=== PATIENT | female | born 1990 | race Caucasian/White ===

== ENCOUNTER 2017-03-06 14:09 | Observation (INO) ==
[2017-03-06] MEDS ORDERED: Ketorolac 30 MG/ML VIAL IVP ONE (14:29)
[2017-03-06] MEDS ORDERED: Ondansetron 4 MG/2 ML VIAL IVP ONE (14:29)
[2017-03-06] MEDS ORDERED: *HR* HYDROmorphone (PF) 1 MG/ML SYRINGE IVP ONE ×3 (14:29→17:12)
--- NOTE | 2017-03-06 14:31 | Emergency Department Note ---
Disposition Clinical Impression: Calculus of kidney Disposition: Admitted As Inpatient Referrals: Moody Dias DO [Primary Care Provider] - Forms: Work/School Release, ED Satisfaction Letter Abdominal Pain HPI - General Chief Complaint: ED Abdominal Pain Stated Complaint: "I'm passing a kidney stone" Time Seen by Provider: 03/06/17 14:15 Source: patient Mode of arrival: ambulatory Limitations: no limitations Nursing Notes Reviewed: Yes Vital Signs Reviewed: Yes - History of Present Illness Pt Subjective Complaint: flank pain Onset (ago): week(s) (1) Consistency: intermittent Location: R flank Pain Scale: 10 Quality: stabbing, sharp Radiation: RLQ Improves with: nothing Worsens with: nothing Associated symptoms: Reports: nausea Treatments prior to arrival: NSAIDs, prescription analgesics - Related Data Home Medications Medication Instructions Recorded Confirmed Etonogestrel [Implanon] 68 mg ONCE 12/11/15 12/13/15 Previous Rx's Medication Instructions Recorded HYDROcodone/Acet 5/325 mg [[place] 2 tab PO Q4H PRN #20 tablet 12/13/15 5-325 mg] Oxybutynin [Ditropan] 5 mg PO TID PRN #30 tablet 12/13/15 Nitrofurantoin (BID) [Macrobid] 100 mg PO BID 7 Days 07/21/16 Ibuprofen [Motrin] 800 mg PO Q8HR PRN #30 tablet 12/12/16 Phenazopyridine HCl [Pyridium] 200 mg PO TID #6 tab 12/12/16 Sulfamethoxazole/Trimeth DS 1 each PO BID #14 tablet 12/12/16 [Bactrim DS] Dicyclomine [Bentyl] 10 mg PO QID #30 capsule 02/27/17 HYDROcodone/Acet 5/325 mg [[place] 1 tab PO Q4H PRN #15 tab 02/27/17 5-325 mg] Phenazopyridine HCl [Pyridium] 200 mg PO TIDAC #10 tab 02/27/17 Allergies Allergy/AdvReac Type Severity Reaction Status Date / Time No Known Allergies Allergy Verified 07/24/15 08:38 All systems ED: reviewed and negative except as stated. Constitutional: Denies: fever, chills, weakness Gastrointestinal: Reports: nausea Genitourinary: Reports: hematuria Abdominal Pain PMH - Past Medical History Medical history: Reports: kidney stones Female Surgical History: Reports: Tonsillectomy, other Psychiatric history: Reports: anxiety, depression - Social History Smoking status: Current every day smoker Alcohol use: Reports: occasionally Drug use: Reports: none Physical Exam - General Limitations: no limitations General appearance: in distress (SEVERE PAIN) - Head Head exam: atraumatic, normocephalic, normal inspection - Eye Eye exam: Present: normal appearance, PERRL, EOMI - Expanded Eye Exam Pupils: Left: reactive - ENT ENT exam: normal exam, normal oropharynx, mucous membranes moist - Expanded ENT Exam External ear exam: Present: normal external inspection Mouth exam: Present: normal external inspection Teeth exam: Present: normal inspection Throat exam: Present: normal inspection - Neck Neck exam: Present: normal inspection, full ROM, trachea midline - Chest Chest inspection: Present: normal inspection, symmetric chest wall rise - Respiratory Respiratory exam: Present: normal lung sounds bilaterally - Cardiovascular Cardiovascular exam: Present: regular rate, normal rhythm, normal heart sounds - Abdominal Exam Abdominal exam: Present: soft, Non-Tender. Absent: tenderness, distention, guarding, rebound, rigidity - Extremities Exam Extremities exam: Present: normal inspection, full ROM. Absent: tenderness, pedal edema - Expanded Upper Extremity Exam Shoulder exam: Present: normal inspection, full ROM Arm exam: Present: normal inspection, full ROM Elbow exam: Present: normal inspection, full ROM Forearm/Wrist exam: Present: normal inspection, full ROM Hand exam: Present: normal inspection, full ROM Vascular exam: Normal: capillary refill, radial pulse - Expanded Lower Extremity Exam Hip/Pelvis exam: Present: normal inspection, full ROM Upper leg exam: Present: normal inspection, full ROM Knee exam: Present: normal inspection, full ROM Lower leg exam: Present: normal inspection, full ROM Ankle exam: Present: normal inspection, full ROM Foot/toe exam: Present: normal inspection, full ROM Neurovascular/Tendon exam: Absent: motor deficit, sensory deficit, tendon deficit - Back Exam Back exam: Present: normal inspection, full ROM. Absent: tenderness - Neurological Exam Neurological exam: Present: alert, oriented X3 - Expanded Neurological Exam Patient oriented to: Present: person, place, time Coma Scale Eye Opening: Spontaneous Coma Scale Motor Response: Obeys Commands Coma Scale Verbal Response: Oriented Coma Scale Total: 15 - Psychiatric Psychiatric exam: Present: normal affect, normal mood - Skin Skin exam: Present: warm, dry, intact, normal color Course - Consultations Consultation #1: DR. DOSHI Time: 16:51 Vital Signs Temperature 97.9 F 03/06/17 14:13 Pulse Rate 92 03/06/17 14:13 Respiratory Rate 18 03/06/17 14:13 Blood Pressure 155/104 03/06/17 14:13 O2 Sat by Pulse Oximetry 97 03/06/17 14:13 Temperature 97.9 F 03/06/17 14:13 Pulse Rate 76 03/06/17 15:35 Respiratory Rate 18 03/06/17 15:35 Blood Pressure 131/85 03/06/17 15:35 O2 Sat by Pulse Oximetry 98 03/06/17 15:35 Abdominal Pain - Differential Diagnosis Differential Diagnosis: Likely: abdominal pain mimics ectopic , acute appendicitis, calculus of kidney, diverticulitis, gastroenteritis, , pancreatitis, small bowel obstruction - Medical Records Medical records reviewed: Yes I reviewed the patient's medical records. - Lab Data Lab results reviewed: Yes I reviewed the patient's lab results. Result diagrams: 03/06/17 15:58 Lab Results 03/06/17 03/06/17 03/06/17 Range/Units 14:20 14:20 15:58 Sodium 141 (136-145) mEq/L Potassium 4.2 (3.5-4.5) mEq/L Chloride 109 (98-109) mEq/L Carbon Dioxide 24 (19-29) mEq/L BUN 8 (7-20) mg/dL Creatinine 0.89 (0.57-1.11) mg/dL Est GFR ( Amer) > 60 (> 60) Est GFR (Non-Af Amer) > 60 (> 60) BUN/Creatinine Ratio 9 (6-26) Glucose 92 (70-99) mg/dL Calculated Osmolality 290 (280-300) Calcium 9.2 (8.6-10.8) mg/dL Urine Color Red A (Yellow) Urine Clarity Turbid A (Clear) Ur Specific [place] 1.021 (1.010-1.025) Urine Glucose (UA) TNP Urine Microscopic RBC 30-50 H (0-3) per hpf Urine Microscopic WBC 5-15 H (0-3) per hpf Ur Squamous Epith Cells Many H (None-Few) per lpf Urine Bacteria None Seen (None-Few) per hpf Hyaline Casts None Seen (None-Few) per lpf Urine Mucus Many H (Few) Ur Culture Indicated? YES A (NO) Urine Test Negative (Negative) - Radiology Data Radiology results reviewed: Yes I reviewed the patient's radiology results.
[2017-03-06 15:12] LABS: Clarity,Urine Turbid (Clear); Color,Urine Red (Yellow); Specific Gravity,Urine 1.021 (1.010-1.025)
[2017-03-06 15:15] LABS: Bacteria,Urine None Seen per hpf (None-Few); Hyaline Casts,Urine None Seen per lpf (None-Few); RBC,Urine 30-50 per hpf (0-3); Squamous Epithelial Cell,Urine Many per lpf (None-Few)
[2017-03-06 15:25] LABS: Mucus,Urine Many (Few)
[2017-03-06 16:25] LABS: BUN/Creatinine Ratio 9 (6-26); Blood Urea Nitrogen 8 mg/dL (7-20); Calcium 9.2 mg/dL (8.6-10.8); Carbon Dioxide 24 mEq/L (19-29); Chloride 109 mEq/L (98-109); Glucose 92 mg/dL (70-99); Osmolality,Calculated 290 (280-300); Potassium 4.2 mEq/L (3.5-4.5); Sodium 141 mEq/L (136-145); eGFR For African Americans > 60 (> 60); eGFR For Non-African Americans > 60 (> 60)
[2017-03-06] MEDS ORDERED: *HR* HYDROcodone/Acet 5/325 mg TABLET PO PRN (17:30)
[2017-03-06] MEDS ORDERED: *HR* Morphine 2 MG/ML SYRINGE IVP PRN (17:30)
[2017-03-06] MEDS ORDERED: Naloxone 0.4 MG/ML INJ IVP PRN (17:30)
--- NOTE | 2017-03-06 17:36 | Urology History & Physical ---
Date of Encounter: 03/06/17 Time of Encounter: 17:34 Assessment and Plan (1) Right ureteral stone Current Visit: Yes Status: Acute Patient we brought him for observation for IV pain control and IV fluids. If patient fails to pass the stone tonight she will be taken to the operating room tomorrow for right ureteroscopic stone extraction. History of Present Illness Chief complaint: right flank pain HPI: Ms. Calix is a 26 year old female with a history of right-sided flank pain for the past week. Patient has been to the emergency department twice secondary to this pain. She is found on CT scan 2 to have a right distal 3 mm UVJ stone. Patient denies any fevers. No current nausea or vomiting. Past Med Surg Social Fam HX - Past Medical History Medical history: kidney stones Psychiatric history: anxiety, depression - Social History Smoking Status: Current every day smoker Smokeless Tobacco Status: No Alcohol use: occasionally Drug use: none Medications and Allergies No Known Home Drugs 03/06/17 [History] Allergies No Known Allergies Allergy (Verified 07/24/15 08:38) Review of Systems - Constitutional no chills, no fatigue, no fever(s) - EENT Nose, mouth and throat: no dizziness - Cardiovascular no chest pain - Respiratory no cough Exam Initial Vital Signs Temp Pulse Resp BP Pulse Ox 97.9 F 92 18 155/104 97 03/06/17 14:13 03/06/17 14:13 03/06/17 14:13 03/06/17 14:13 03/06/17 14:13 - General physical appearance Present: well developed - Eyes Present: PERRL - ENT Present: normal nares - Neck Present: no masses - Abdomen Abdomen: Present: soft Urology Results - Labs 03/06/17 15:58 Abnormal lab results Urine Color Red (Yellow) A 03/06/17 14:20 Urine Clarity Turbid (Clear) A 03/06/17 14:20 Urine Microscopic RBC 30-50 per hpf (0-3) H 03/06/17 14:20 Urine Microscopic WBC 5-15 per hpf (0-3) H 03/06/17 14:20 Ur Squamous Epith Cells Many per lpf (None-Few) H 03/06/17 14:20 Urine Mucus Many (Few) H 03/06/17 14:20 Ur Culture Indicated? YES (NO) A 03/06/17 14:20 All other labs normal. - Imaging CT scan - abdomen: image reviewed CT scan - pelvis: image reviewed
[2017-03-06] MEDS: Ketorolac 30 MG/ML VIAL IVP SCH ×2 (20:22→23:39)
[2017-03-06] MEDS: 0.9 % Sodium Chloride 1,000 ML IVC SCH (20:26)
[2017-03-06] MEDS ORDERED: *HR* Promethazine 25 MG/ML VIAL IVP PRN (20:46)
[2017-03-07 04:02] LABS: Basophils # 0.1 K/mcL (0.0-0.2); Basophils % 0.6 %; Eosinophils # 0.3 K/mcL (0.0-0.6); Eosinophils % 2.8 %; Hemoglobin 12.5 g/dL (11.5-15.4); Immature Granulocytes % 0.4 % (0-4); Lymphocytes # 3.5 K/mcL (0.6-4.6); Lymphocytes % 33.3 %; Mean Corpuscular HGB Conc 32.1 g/dL (31.6-35.5); Mean Corpuscular Hemoglobin 28.8 pg (28.0-33.3); Mean Corpuscular Volume 89.9 fL (83.0-100.0); Mean Platelet Volume 10.6 fL (9.4-12.4); Monocytes % 9.1 %; Neutrophils # 5.7 K/mcL (1.6-8.9); Platelet Count 301 K/mcL (140-400); Red Blood Count 4.34 M/mcL (3.82-4.97); Segmented Neutrophils % 53.8 %
[2017-03-07 04:35] LABS: BUN/Creatinine Ratio 11 (6-26); Blood Urea Nitrogen 9 mg/dL (7-20); Calcium 8.3 mg/dL (8.6-10.8); Carbon Dioxide 23 mEq/L (19-29); Chloride 110 mEq/L (98-109); Glucose 85 mg/dL (70-99); Osmolality,Calculated 290 (280-300); Potassium 3.8 mEq/L (3.5-4.5); Sodium 141 mEq/L (136-145); eGFR For African Americans > 60 (> 60); eGFR For Non-African Americans > 60 (> 60)
[2017-03-07] MEDS: 0.9 % Sodium Chloride 1,000 ML IVC SCH (04:45)
[2017-03-07] MEDS: Ketorolac 30 MG/ML VIAL IVP SCH (05:33)
--- NOTE | 2017-03-07 06:49 | Urology Progress Note ---
Date of Encounter: 03/07/17 Time of Encounter: 06:48 - Assessment and Plan (1) Right ureteral stone Current Visit: Yes Status: Acute Assessment and plan: to OR today for stone extraction. Progress Note Narrative: HD 2 for right distal ureteral stone. patient with pain controlled, but does not believe she passed the stone. Objective Initial Vital Signs Temp Pulse Resp BP Pulse Ox 97.9 F 92 18 155/104 97 03/06/17 14:13 03/06/17 14:13 03/06/17 14:13 03/06/17 14:13 03/06/17 14:13 - General physical appearance Present: well developed - Abdomen Present: soft - Labs 03/07/17 03:30 03/07/17 03:30 Diabetes panel 03/07/17 Range/Units 03:30 Sodium 141 (136-145) mEq/L Potassium 3.8 (3.5-4.5) mEq/L Chloride 110 H (98-109) mEq/L Carbon Dioxide 23 (19-29) mEq/L BUN 9 (7-20) mg/dL Creatinine 0.85 (0.57-1.11) mg/dL Glucose 85 (70-99) mg/dL Calcium 8.3 L (8.6-10.8) mg/dL Calcium panel 03/07/17 Range/Units 03:30 Calcium 8.3 L (8.6-10.8) mg/dL Pituitary panel 03/07/17 Range/Units 03:30 Sodium 141 (136-145) mEq/L Potassium 3.8 (3.5-4.5) mEq/L Chloride 110 H (98-109) mEq/L Carbon Dioxide 23 (19-29) mEq/L BUN 9 (7-20) mg/dL Creatinine 0.85 (0.57-1.11) mg/dL Glucose 85 (70-99) mg/dL Calcium 8.3 L (8.6-10.8) mg/dL Adrenal panel 03/07/17 Range/Units 03:30 Sodium 141 (136-145) mEq/L Potassium 3.8 (3.5-4.5) mEq/L Chloride 110 H (98-109) mEq/L Carbon Dioxide 23 (19-29) mEq/L BUN 9 (7-20) mg/dL Creatinine 0.85 (0.57-1.11) mg/dL Glucose 85 (70-99) mg/dL Calcium 8.3 L (8.6-10.8) mg/dL Consult Discharge Plan - Plan Referrals: Moody Dias DO [Primary Care Provider] -
[2017-03-07] MEDS ORDERED: *HR* Succinylcholine 200 MG/10 ML VIAL IVP ONE (07:09)
[2017-03-07] MEDS ORDERED: Propofol 500 MG/50 ML INFUS..BTL ONE (07:10)
[2017-03-07] MEDS ORDERED: *HR* FentaNYL (PF) 100 MCG/2 ML VIAL ONE (07:10)
[2017-03-07] MEDS ORDERED: *HR* Midazolam HCl 2 MG/2 ML VIAL ONE (07:10)
[2017-03-07] MEDS ORDERED: *HR* Phenylephrine 10 MG/ML VIAL ONE (07:10)
--- NOTE | 2017-03-07 07:25 | Anesthesia Evaluation PreOp ---
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 HX Other Medical History: Renal (renal stones), Other (anxiety, BMI 43) Anesthesia History: No Prior Anesthetic Complications, Past Anesthesia (renal stones, cholecystectomy) Alcohol Use: occasionally Drug use: none Medications and Allergies No Known Home Drugs 03/06/17 [History] Allergies No Known Allergies Allergy (Verified 07/24/15 08:38) - Meds/Allergy Pre-op Review Medications Reviewed: Yes Allergies Reviewed: Yes Beta Blockers on Current Med List: No Anesthesia Results - Labs 03/07/17 03:30 03/07/17 03:30 Anesthesia Exam Last Vital Signs Temp 97.9 F 03/07/17 06:52 Pulse 74 03/07/17 06:52 Resp 16 03/07/17 06:52 BP 131/90 03/07/17 06:52 Pulse Ox 98 03/07/17 06:52 Weight: 132 kg NPO (# of Hours): >> 8 hrs - HEENT Pupil (Motor): Pupils equal, EOMI Mallampati: II Teeth: Normal Oral Opening: Greater than 3 - SINGING TEACHER LOC: Oriented SINGING TEACHER Motor: Normal RUE, Normal LUE, Normal RLE, Normal LLE, Normal 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
[2017-03-07] MEDS ORDERED: Albuterol 2.5 MG/3 ML NEBULIZER ONE (07:32)
[2017-03-07] MEDS ORDERED: Lidocaine -MPF 2% 2 ML VIAL ONE (07:42)
[2017-03-07] MEDS ORDERED: Ondansetron 4 MG/2 ML VIAL ONE (07:42)
[2017-03-07] MEDS ORDERED: Dexamethasone 4 MG/ML VIAL ONE (07:42)
[2017-03-07] MEDS ORDERED: *HR* Promethazine 25 MG/ML VIAL IVP PRN ×2 (07:49→09:02)
--- NOTE | 2017-03-07 08:15 | Operative Note ---
Date of procedure: 03/07/17 Pre-op diagnosis: right distal ureteral sonte Post-op diagnosis: other (normal right ureter) Procedure: Right diagnostic ureteroscopy Anesthesia: GETA Surgeon: Miguel Ángel Olson Condition: stable Disposition: PACU Procedure in Detail: Patient was prepped and draped in normal sterile fashion. Timeout procedure performed. The semirigid ureteroscope was inserted into the urethra into the bladder. I then cannulated the right ureteral orifice. I then advanced the scope up to the proximal ureter slowly withdrew the scope with no stones seen. The distal ureter was red and inflamed consistent with recent passage of ureteral stone. No stone was visualized in the bladder. Procedure was ended.
--- NOTE | 2017-03-07 08:18 | Discharge Summary ---
Date of Encounter: 03/07/17 Time of Encounter: 08:16 - Discharge Diagnosis (1) Right ureteral stone Priority: Primary Status: Acute - Discharge Medications Prescriptions: HYDROcodone/Acet 5/325 mg [[place] 5-325 mg] 2 tab PO Q4H PRN #8 tablet PRN Reason: pain 1-5 Home Medications: HYDROcodone/Acet 5/325 mg [[place] 5-325 mg] 2 tab PO Q4H PRN #8 tablet 03/07/17 [ Rx] Allergies/Adverse Reactions: Allergies No Known Allergies Allergy (Verified 07/24/15 08:38) Procedures and tests throughout hospitalization: Right ureteroscopy on 03/07/2017 Labs on day of discharge: Labs from last 24 hours 03/07/17 03/07/17 03/07/17 05:41 03:30 03:30 WBC 10.5 RBC 4.34 Hgb 12.5 Hct 39.0 MCV 89.9 MCH 28.8 MCHC 32.1 RDW 12.0 Plt Count 301 MPV 10.6 Immature Gran % 0.4 Seg Neutrophils % 53.8 Lymphocytes % 33.3 Monocytes % 9.1 Eosinophils % 2.8 Basophils % 0.6 Neutrophils # 5.7 Lymphocytes # 3.5 Monocytes # 1.0 Eosinophils # 0.3 Basophils # 0.1 Sodium 141 Potassium 3.8 Chloride 110 H Carbon Dioxide 23 BUN 9 Creatinine 0.85 Est GFR ( Amer) > 60 Est GFR (Non-Af Amer) > 60 BUN/Creatinine Ratio 11 Glucose 85 POC Glucose 81 Calculated Osmolality 290 Calcium 8.3 L Date of admission: 03/06/17 17:06 Primary care physician: Moody Dias, Discharging clinician: Miguel Ángel Olson Anticipated date of discharge: 03/07/17 - Patient Status Disposition: Home, Self-Care Condition: Good Overall status at discharge: patient is progressing back to baseline - Discharge Instructions Follow Up With: Moody Dias DO [Primary Care Provider] - Miguel Ángel Olson MD [Partnered Physician] - (3-4 weeks ) - Diet and Activity Activity: increase activity as tolerated Diet: advance to your usual diet - Hospital Course Hospital course: Ms. Calix is a 26 year old female who was brought in for observation for right distal ureteral stone. Patient believes that she failed to pass the stone overnight with continued discomfort. She was taken to the operating room where a right ureteroscopy was performed with no stone found. Patient was then discharged home. Time spent discussing smoking cessation with patient: 3 to 10 minutes - Time Spent with Patient Total time spent providing and/or coordinating discharge services: Less than 30 minutes Exam Initial Vital Signs Temp Pulse Resp BP Pulse Ox 97.9 F 92 18 155/104 97 03/06/17 14:13 03/06/17 14:13 03/06/17 14:13 03/06/17 14:13 03/06/17 14:13 - General physical appearance Present: well developed
[2017-03-07] MEDS ORDERED: Albuterol 2.5 MG/3 ML NEBULIZER IH ONE (08:22)
[2017-03-07] MEDS: *HR* HYDROmorphone (PF) 1 MG/ML SYRINGE IVP PRN ×4 (08:25→08:39)
[2017-03-07] MEDS ORDERED: *HR* HYDROcodone/Acet 5/325 mg TABLET PO PRN (09:02)
[2017-03-07] MEDS ORDERED: *HR* Morphine 2 MG/ML SYRINGE IVP PRN (09:02)
[2017-03-07] MEDS ORDERED: 0.9 % Sodium Chloride 1,000 ML IVC SCH (09:02)
--- NOTE | 2017-03-07 09:05 | Anesthesia Evaluation Post Op ---
Date of Encounter: 03/07/17 Time of Encounter: 08:40 - Vital Signs Vital Signs: Last Vital Signs Temp 98.1 F 03/07/17 08:49 Pulse 90 03/07/17 08:56 Resp 16 03/07/17 08:56 BP 110/72 03/07/17 08:56 Pulse Ox 95 03/07/17 08:56 - Lungs Lungs: Clear Ascult./Percussion - Airway Airway: Non-obstructed - Cardiovascular Regular Rate - Mental Status Mental Status: Alert & Oriented, Answers Appropriately - Pain Pain Scale: 3 - Nausea Vomiting Nausea Vomiting: Not Present - Hydration Hydration: Ice chips - Discharge PostOp Status: Transfer Patient to floor
[2017-03-07 10:20] VITALS: BP 125/87
[2017-03-07] MEDS ORDERED: Ketorolac 30 MG/ML VIAL IVP SCH (12:00)
== END 2017-03-07 10:30 | disposition home or self-care (01) ==
LOC: EMEROO 14:09 → 3ANU 14:09
PROVIDERS: ADMIT Urology; ATTEND Urology

== ENCOUNTER 2021-07-02 15:11 | Observation (INO) ==
[2021-07-02 19:37] LABS: Bacteria,Urine Few per hpf (None-Few); Bilirubin,Urine Negative (Negative); Blood,Urine Small (Negative); Clarity,Urine Clear (Clear); Color,Urine Light-Yellow (Yellow); Glucose,Urine (UA) Normal (Normal); Ketones,Urine Negative (Negative); Leukocyte Esterase,Urine Trace (Negative); Mucus,Urine Few per lpf (None-Few); Nitrite,Urine Negative (Negative); PH,Urine 5.5 pH Units (5.0-8.0); Protein,Urine Trace mg/dL (Neg-Trace); Specific Gravity,Urine 1.025 (1.010-1.025); Squamous Epithelial Cell,Urine Few per hpf (None-Few); Urobilinogen,Urine Normal (Normal); WBC,Urine 0-3 per hpf (0-3)
[2021-07-02] MEDS ORDERED: *HR* Labetalol 20 MG/4 ML SYRINGE IVP ONE ×2 (20:05→21:07)
[2021-07-02 20:28] LABS: Basophils # 0.1 K/mcL (0.0-0.2); Basophils % 0.6 %; Eosinophils # 0.4 K/mcL (0.0-0.6); Eosinophils % 2.6 %; Hematocrit 37.3 % (35.3-44.9); Immature Granulocytes % 0.5 % (0-4); Lymphocytes # 4.1 K/mcL (0.6-4.6); Lymphocytes % 30.9 %; Mean Corpuscular HGB Conc 32.2 g/dL (31.6-35.5); Mean Corpuscular Hemoglobin 27.9 pg (28.0-33.3); Mean Corpuscular Volume 86.7 fL (83.0-100.0); Mean Platelet Volume 10.8 fL (9.4-12.4); Monocytes # 1.1 K/mcL (0.0-1.3); Monocytes % 8.1 %; Neutrophils # 7.6 K/mcL (1.6-8.9); Platelet Count 320 K/mcL (140-400); Red Cell Distribution Width 13.5 % (11.5-14.5); Segmented Neutrophils % 57.3 %; White Blood Count 13.3 K/mcL (4.3-11.1)
[2021-07-02 20:48] LABS: BUN/Creatinine Ratio 23 (6-26); Blood Urea Nitrogen 13 mg/dL (6-20); Calcium 8.7 mg/dL (8.6-10.3); Carbon Dioxide 21 mEq/L (23-29); Chloride 106 mEq/L (98-107); Glucose 80 mg/dL (70-105); Osmolality,Calculated 285 (280-300); Sodium 138 mEq/L (136-145); eGFR For African Americans > 60 (> 60); eGFR For Non-African Americans > 60 (> 60)
[2021-07-02 20:50] LABS: Troponin I < 0.03 ng/mL (< 0.04)
[2021-07-02 20:56] LABS: Platelet Estimate Normal (Normal); Reactive Lymphocytes Present (Not Present)
[2021-07-02] MEDS ORDERED: Ondansetron 4 MG/2 ML VIAL IVP PRN (23:01)
[2021-07-02] MEDS ORDERED: Naloxone 0.4 MG/ML INJ IVP PRN (23:01)
[2021-07-02] MEDS ORDERED: Melatonin 3 MG TABLET PO PRN (23:01)
[2021-07-02] MEDS ORDERED: Perflutren Lipid Microsphere 1.3 ML in 0.9 % Sodium Chloride 8.7 ML IVP PRN (23:27)
[2021-07-03] MEDS: Gabapentin 300 MG CAPSULE PO SCH ×4 (00:42→20:51)
[2021-07-03] MEDS ORDERED: *HR* Metoprolol 5 MG/5 ML VIAL IVP PRN (01:05)
[2021-07-03] MEDS: amLODIPine 5 MG TABLET PO SCH ×2 (02:08→09:11)
[2021-07-03 02:18] LABS: Basophils # 0.1 K/mcL (0.0-0.2); Basophils % 0.7 %; Eosinophils # 0.4 K/mcL (0.0-0.6); Eosinophils % 2.7 %; Hematocrit 39.9 % (35.3-44.9); Hemoglobin 12.8 g/dL (11.5-15.4); Immature Granulocytes % 0.6 % (0-4); Lymphocytes # 4.4 K/mcL (0.6-4.6); Lymphocytes % 32.6 %; Mean Corpuscular HGB Conc 32.1 g/dL (31.6-35.5); Mean Corpuscular Hemoglobin 28.2 pg (28.0-33.3); Mean Corpuscular Volume 87.9 fL (83.0-100.0); Mean Platelet Volume 10.5 fL (9.4-12.4); Monocytes % 7.7 %; Neutrophils # 7.5 K/mcL (1.6-8.9); Platelet Count 326 K/mcL (140-400); Red Blood Count 4.54 M/mcL (3.82-4.97); Red Cell Distribution Width 13.6 % (11.5-14.5); Segmented Neutrophils % 55.7 %; White Blood Count 13.5 K/mcL (4.3-11.1)
[2021-07-03 02:36] LABS: Alanine Aminotransferase 30 Units/L (7-52); Albumin 3.7 g/dL (3.5-5.7); Albumin/Globulin Ratio 1.2 (1.1-2.2); Alkaline Phosphatase 59 Units/L (34-104); Aspartate Amino Transferase 38 Units/L (13-39); BUN/Creatinine Ratio 22 (6-26); Bilirubin,Total 0.3 mg/dL (0.3-1.0); Blood Urea Nitrogen 11 mg/dL (6-20); Calcium 8.9 mg/dL (8.6-10.3); Carbon Dioxide 19 mEq/L (23-29); Chloride 106 mEq/L (98-107); Globulin 3.2 g/dL (2.4-3.5); Glucose 90 mg/dL (70-105); Osmolality,Calculated 281 (280-300); Potassium 3.9 mEq/L (3.5-5.1); Sodium 136 mEq/L (136-145); Total Protein 6.9 g/dL (6.4-8.9); eGFR For African Americans > 60 (> 60); eGFR For Non-African Americans > 60 (> 60)
[2021-07-03 02:43] LABS: Platelet Estimate Normal (Normal); Reactive Lymphocytes Present (Not Present)
[2021-07-03] MEDS: *HR* Heparin 5,000 UNIT/ML VIAL SQ SCH ×2 (06:04→17:47)
[2021-07-03] MEDS ORDERED: Gabapentin 300 MG CAPSULE PO SCH (09:00)
[2021-07-03] MEDS: Metoprolol XL (24 HR) Succ 50 MG TAB.ER.24H PO SCH (09:11)
[2021-07-03] MEDS: Acetaminophen 325 MG TABLET PO PRN ×2 (09:17→17:07)
[2021-07-03] MEDS ORDERED: lisinopriL 5 MG TABLET PO SCH (14:15)
[2021-07-03] MEDS ORDERED: *HR* Labetalol 20 MG/4 ML SYRINGE IVP ONE (21:42)
[2021-07-03] MEDS: Ibuprofen 400 MG TABLET PO PRN (22:10)
[2021-07-04] MEDS: *HR* Heparin 5,000 UNIT/ML VIAL SQ SCH ×2 (05:19→17:07)
[2021-07-04 07:44] LABS: Basophils # 0.1 K/mcL (0.0-0.2); Basophils % 0.9 %; Eosinophils # 0.3 K/mcL (0.0-0.6); Eosinophils % 2.7 %; Hematocrit 38.4 % (35.3-44.9); Hemoglobin 12.6 g/dL (11.5-15.4); Immature Granulocytes % 0.7 % (0-4); Lymphocytes % 32.9 %; Mean Corpuscular HGB Conc 32.8 g/dL (31.6-35.5); Mean Corpuscular Hemoglobin 28.5 pg (28.0-33.3); Mean Corpuscular Volume 86.9 fL (83.0-100.0); Mean Platelet Volume 11.1 fL (9.4-12.4); Monocytes % 8.2 %; Neutrophils # 6.6 K/mcL (1.6-8.9); Platelet Count 343 K/mcL (140-400); Red Blood Count 4.42 M/mcL (3.82-4.97); Red Cell Distribution Width 13.4 % (11.5-14.5); Segmented Neutrophils % 54.6 %
[2021-07-04] MEDS: Metoprolol XL (24 HR) Succ 50 MG TAB.ER.24H PO SCH (09:24)
[2021-07-04] MEDS: Gabapentin 300 MG CAPSULE PO SCH ×3 (09:24→20:08)
[2021-07-04] MEDS: lisinopriL 10 MG TABLET PO SCH (09:24)
[2021-07-04] MEDS: NORETHINDRONE AC ETH ESTRADIOL PO SCH (13:48)
[2021-07-04] MEDS: ISOTRETINOIN 30 MG PO SCH (15:52)
[2021-07-04] MEDS: Acetaminophen 325 MG TABLET PO PRN (17:05)
[2021-07-04] MEDS: Ibuprofen 400 MG TABLET PO PRN (22:04)
[2021-07-05 03:42] VITALS: O2SAT 97
[2021-07-05 05:08] LABS: Thyroid Stimulating Hormone 3.499 mcIU/mL (0.340-5.600)
[2021-07-05] MEDS: *HR* Heparin 5,000 UNIT/ML VIAL SQ SCH ×2 (05:21→16:01)
[2021-07-05] MEDS: Ibuprofen 400 MG TABLET PO PRN (05:23)
[2021-07-05 05:45] LABS: Hematocrit 42.4 % (35.3-44.9); Hemoglobin 13.3 g/dL (11.5-15.4); Mean Corpuscular HGB Conc 31.4 g/dL (31.6-35.5); Mean Corpuscular Hemoglobin 28.4 pg (28.0-33.3); Mean Corpuscular Volume 90.4 fL (83.0-100.0); Platelet Count 309 K/mcL (140-400); Red Blood Count 4.69 M/mcL (3.82-4.97); Red Cell Distribution Width 13.8 % (11.5-14.5); White Blood Count 12.7 K/mcL (4.3-11.1)
[2021-07-05] MEDS: Gabapentin 300 MG CAPSULE PO SCH ×2 (08:28→16:00)
[2021-07-05] MEDS: ISOTRETINOIN 30 MG PO SCH (08:28)
[2021-07-05] MEDS: NORETHINDRONE AC ETH ESTRADIOL PO SCH (08:28)
[2021-07-05] MEDS: Metoprolol XL (24 HR) Succ 50 MG TAB.ER.24H PO SCH (08:29)
[2021-07-05] MEDS: lisinopriL 10 MG TABLET PO SCH (08:29)
[2021-07-05 09:13] LABS: Eosinophils # 0.8 K/mcL (0.0-0.6); Lymphocytes # 3.1 K/mcL (0.6-4.6); Monocytes # 0.3 K/mcL (0.0-1.3); Neutrophils # 8.6 K/mcL (1.6-8.9); Platelet Estimate Normal (Normal)
[2021-07-05 09:14] LABS: Smudge Cells Present (Not Present)
[2021-07-05 11:27] VITALS: BP 153/89; PULSE 96; TEMP 98.4
== END 2021-07-05 16:23 | disposition home or self-care (01) ==
LOC: EMEROOARM 15:11 → CDU 15:11 → SUATTDRO 23:01 → CDU 07-03 00:29 → 3BNU 07-04 21:59
PROVIDERS: ADMIT Family Medicine; ATTEND Internal Medicine